=== PATIENT | male | born 1940 | race Caucasian/White ===

== ENCOUNTER 2018-09-24 12:21 | Outpatient (CLI) | payer MEDICARE ==
[2018-09-24 13:44] LABS: Hemoglobin 14.3 g/dL (14.0-18.0); Mean Corpuscular HGB CONC 33.8 g/dL (32.0-36.0); Mean Corpuscular Hemoglobin 30.8 pg (27.0-31.0); Mean Corpuscular Volume 91.2 fL (78.0-98.0); Mean Platelet Volume 8.6 fL (7.4-10.4); Platelet Count 210 thou/uL (130-400); RBC Distribution Width 12.8 % (11.5-14.5); Red Blood Cell (RBC) Count 4.63 mill/uL (4.70-6.10); White Blood Cell (WBC) Count 5.3 thou/uL (4.8-10.8)
[2018-09-24 13:56] LABS: Anion Gap 10 mmol/L (10-20); BUN (Urea Nitrogen) 18 mg/dL (8.4-25.7); Calc. Creatinine Clearance 0 mL/min (70-130); Calcium 8.7 mg/dL (7.8-10.44); Carbon Dioxide 25 mmol/L (23-31); Chloride 109 mmol/L (98-107); Estimated GFR-MDRD 71; Glucose 97 mg/dL (83-110); Potassium 4.1 mmol/L (3.5-5.1); Sodium 140 mmol/L (136-145)
--- NOTE | 2018-09-24 19:29 | EKG ---
Test Reason : Blood Pressure : / mmHG Vent. Rate : 055 BPM Atrial Rate : 055 BPM P-R Int : 194 ms QRS Dur : 118 ms QT Int : 432 ms P-R-T Axes : 054 014 019 degrees QTc Int : 413 ms Sinus bradycardia with sinus arrhythmia Incomplete right bundle branch block Borderline ECG No previous ECGs available Confirmed by BRIAN LAZO, DR. Thompson ([id number]) on 09/24/2018 7:29:44 PM Referred By: NEMESIO Confirmed By:DR. Donna TORRES MD
== END 2018-09-24 12:22 | disposition home or self-care (01) ==
LOC: LABBT 12:21
PROVIDERS: ATTEND Urology
DX: Z01.818 Encounter for other preprocedural examination (principal); N40.0 Benign prostatic hyperplasia without lower urinary tract symptoms; R33.9 Retention of urine, unspecified; R35.1 Nocturia; R39.14 Feeling of incomplete bladder emptying; R97.20 Elevated prostate specific antigen [PSA]; Q61.9 Cystic kidney disease, unspecified
CPT/HCPCS: 80048; 81001; 85027; 93005; 93010

== ENCOUNTER 2018-10-02 05:59 | Day surgery (SDC) | payer MEDICARE ==
[2018-09-24 12:29] VITALS: BMI 30.3
[2018-10-02] MEDS ORDERED: Levofloxacin 500 mg/D5W 100 ml Premix Bag ONE (06:30)
[2018-10-02] MEDS ORDERED: Fentanyl 100 MCG/2 ML VIAL ONE ×2 (07:02→11:03)
[2018-10-02] MEDS ORDERED: B & O ONE (07:25)
[2018-10-02] MEDS ORDERED: Furosemide 20 MG/2 ML VIAL ONE (07:25)
[2018-10-02] MEDS ORDERED: Ondansetron PF 4 MG/2 ML Vial ONE (16:24)
[2018-10-02] MEDS ORDERED: ePHEDrine/0.9% NaCl/PF SYRINGE 50 mg/10 ml ONE (16:24)
[2018-10-02] MEDS ORDERED: Lidocaine 1% PF 5 ML VIAL ONE (16:24)
[2018-10-02] MEDS ORDERED: Glycopyrrolate 0.2 MG/ML 5 ML SYRINGE ONE (16:24)
[2018-10-02] MEDS ORDERED: PROPOFOL 200 MG/20 ML VIAL ONE (16:24)
--- NOTE | 2018-10-05 04:53 | OP ---
DATE OF PROCEDURE: 10/02/2018 PREOPERATIVE DIAGNOSIS: Benign prostatic hyperplasia. POSTOPERATIVE DIAGNOSIS: Benign prostatic hyperplasia. PROCEDURE PERFORMED: GreenLight laser vaporization of the prostate with enucleation of the very large intravesical middle lobe using 452,331 joules. SPECIMENS: Prostate. COMPLICATIONS: None. DRAIN: Drain remaining, 20-Argentine shageluk. BLOOD LOSS: Minimal. ANESTHESIA: General with endotracheal tube. INDICATIONS FOR PROCEDURE: The patient is a 77-year-old male, whom I saw in the office with BPH, on maximum medicines and noted to have symptoms still, so was set up for definitive surgical intervention. DESCRIPTION OF PROCEDURE: The patient was brought into the room by Anesthesia, and kept in a supine position. After achieving general anesthetic, the legs were placed in lithotomy position and his perineum was prepped and draped in sterile fashion. Using a 22.5-Argentine cystoscope and a 30-degree lens, the urethra was traversed and the bladder was inspected. The ureteral orifices were identified, but it was very difficult to assess this based on its very large intravesical lobe. The left was definitely seen and the right was finally seen after significant time spent looking. Then, tedious resection of the intravesical lobe proceeded using a power level of 80, enucleating this in small enough pieces such that they could be easily irrigated out. This is about half of the case, and then once this was down, the lateral lobes were still obstructing as there was the long urethra. A power level of 80 was used. Once I was out of the actual intravesical component and when the scope was removed, good stream was noted. The scope was put back in and further resection of any obstructing component was taken out. A total of [id number] joules were used. A small amount of coag was used on the right side where there was a small venous bleed that was adequately controlled. There was no bleeding at the end of the case even with the relatively decompressed bladder. The bladder neck was undermined slightly in this area, so at this point, a wire was left in place, scope was removed and a 20-Argentine shageluk was placed over the wire and then the wire removed. Catheter balloon blown out with 30 mL of fluids and then secured to the patient's inner thigh. The patient was then awakened and transferred to the PACU in stable condition. Job ID: [id number] [facility]
== END 2018-10-02 12:45 | disposition home or self-care (01) ==
LOC: SDC 05:59
PROVIDERS: ATTEND Urology
PROC: 0V508ZZ Destruction of Prostate, Via Natural or Artificial Opening Endoscopic (ICD-10-PCS; principal; 2018-10-02)
DX: N40.1 Benign prostatic hyperplasia with lower urinary tract symptoms (principal); R33.8 Other retention of urine; R35.0 Frequency of micturition; R39.11 Hesitancy of micturition; R35.1 Nocturia; R39.12 Poor urinary stream; Q61.9 Cystic kidney disease, unspecified; I10 Essential (primary) hypertension; Z79.899 Other long term (current) drug therapy
CPT/HCPCS: 88305; 96374; J1940; J1956; J2001; J2405; J2704; J3010

== ENCOUNTER 2019-07-30 16:38 | Inpatient (IN) | payer MEDICARE ==
[2019-07-30] MEDS ORDERED: Nitroglycerin 2% Ointment 1 INCH/1 GM Packet ONE (17:02)
[2019-07-30 17:12] LABS: #Eosinphils 0.1 thou/uL (0.0-0.7); #Lymphocytes 1.1 thou/uL (1.20-3.40); #Monocytes 0.6 thou/uL (0.11-0.59); %Basophils 0.7 % (0.0-1.0); %Lymphocytes 18.7 % (21.0-51.0); %Monocytes 10.7 % (0.0-10.0); %Neutrophils 68.8 % (42.0-75.0); Hemoglobin 14.7 g/dL (14.0-18.0); Mean Corpuscular HGB CONC 33.6 g/dL (32.0-36.0); Mean Corpuscular Hemoglobin 30.9 pg (27.0-31.0); Mean Corpuscular Volume 91.9 fL (78.0-98.0); Mean Platelet Volume 8.4 fL (7.4-10.4); Platelet Count 194 thou/uL (130-400); RBC Distribution Width 12.5 % (11.5-14.5); Red Blood Cell (RBC) Count 4.77 mill/uL (4.70-6.10); White Blood Cell (WBC) Count 5.8 thou/uL (4.8-10.8)
--- NOTE | 2019-07-30 17:26 | RAD ---
RADIOGRAPH CHEST 1 VIEW: DATE: 07/30/2019 HISTORY: 78-year-old male with chest pain FINDINGS: The thoracic aorta is tortuous and ectatic. There is no evidence of airspace density, cardiomegaly, p ulmonary edema, or pneumothorax. The lateral costophrenic angles are not effaced. IMPRESSION: 1) No acute pulmonary findings. 2) ectasia of thoracic aorta.
[2019-07-30 17:33] LABS: ALT (SGPT) 12 U/L (8-55); AST (SGOT) 14 U/L (5-34); Albumin 4.1 g/dL (3.4-4.8); Alkaline Phosphatase 52 U/L (40-110); Anion Gap 10 mmol/L (10-20); BUN (Urea Nitrogen) 18 mg/dL (8.4-25.7); Bilirubin, Total 0.3 mg/dL (0.2-1.2); CK (CPK) 105 U/L (30-200); Calc. Creatinine Clearance 0 mL/min (70-130); Calcium 8.9 mg/dL (7.8-10.44); Carbon Dioxide 26 mmol/L (23-31); Chloride 107 mmol/L (98-107); Estimated GFR-MDRD 64; Globulin 2.4 g/dL (2.4-3.5); Glucose 109 mg/dL (83-110); Lipase 39 U/L (8-78); Potassium 3.8 mmol/L (3.5-5.1); Protein, Total 6.5 g/dL (5.8-8.1); Sodium 139 mmol/L (136-145)
[2019-07-30 17:52] LABS: CKMB 3.9 ng/mL (0-6.6)
[2019-07-30] MEDS ORDERED: Acetaminophen 325 MG TAB PO PRN (19:37)
[2019-07-30] MEDS ORDERED: Labetalol HCl 100 MG/20 ML VIAL SLOW IVP PRN (19:44)
[2019-07-30] MEDS ORDERED: Nitroglycerin 0.4 MG TAB (25 Tab Bottle) SL PRN (19:44)
[2019-07-30] MEDS ORDERED: Enoxaparin Sodium 80 MG/0.8 ML SYRINGE SC SCH (20:00)
[2019-07-30 20:49] LABS: Troponin I 1.958 ng/mL (< 0.028)
[2019-07-30 21:00] VITALS: BMI 26.9
[2019-07-30] MEDS ORDERED: Tamsulosin HCl 0.4 MG CAP PO SCH (21:00)
[2019-07-30] MEDS: Atorvastatin Calcium 40 MG TAB PO SCH (21:31)
[2019-07-30 23:49] LABS: Troponin I 3.665 ng/mL (< 0.028)
[2019-07-31] MEDS ORDERED: Sodium Chloride 0.9% 1,000 ML IV SCH
--- NOTE | 2019-07-31 01:43 | HP ---
CHIEF COMPLAINT: Chest pain. HISTORY OF PRESENT ILLNESS: The patient is a very pleasant 78-year-old male with a history of hypertension, who presents to the hospital with complaints of chest pain x1 day. The patient states that he was walking around in his yard when he started having some chest pain, chest tightness and radiated up to his left jaw line. At this time, the patient went back into his house, rested, his pain got a little better. However, when his pain did not improve, he asked his to call 911 and was brought into the hospital. The patient stated that about 2 weeks ago, he had a similar episode while he was in the yard. He had some chest pain. However, he thought that was most likely an indigestion and however the pain improved without any intervention. The patient denies any episodes in between the 2 weeks, any other additional episodes. The patient stated that he was given nitroglycerin in the ER. He was also given some fentanyl and full baby aspirins. PAST MEDICAL HISTORY: The patient does have a history of hypertension and hyperlipidemia. He also has a history of BPH and diverticulitis. PAST SURGICAL HISTORY: He has had appendectomy, tonsillectomy, colonoscopy in 2018. FAMILY HISTORY: Father at 84, emphysema, stomach cancer. Mother diseased at 93. SOCIAL HISTORY: He denies any smoking, drug abuse, or alcohol. He drinks one beer a month. He is , lives with his , and he is a full code. ALLERGIES: HE HAS NO KNOWN DRUG ALLERGIES. MEDICATIONS: 1. Benazepril 10 mg daily. 2. Finasteride 5 mg daily. 3. Tamsulosin 0.4 daily. REVIEW OF SYSTEMS: All negative except for the ones mentioned above in the HPI. PHYSICAL EXAMINATION: VITAL SIGNS: As of the following; temperature of 98.8, heart rate of 80, blood pressure of 150/60, 98% on room air. GENERAL: He is awake, alert, and oriented x3. Does not appear in any distress. HEENT: Normocephalic, atraumatic. No lymphadenopathy noted. Pupils are equal and reactive to light. CV: S1 and S2 present. No murmurs, rubs, or gallops. LUNGS: Clear to auscultation. No rhonchi or wheezes noted. ABDOMEN: Soft and nontender. Bowel sounds are present x2. EXTREMITIES: No edema. Pedal pulses are present x2. NEUROVASCULAR: No focal deficits noted. SKIN: No cuts, lesions or bruises noted. LABORATORY RESULTS: His WBCs of 5.8, hemoglobin of 14.7, hematocrit of 43.8, his platelets of 194. Chemistry; sodium of 139, potassium 3.8, BUN of 18, creatinine 1.12. His troponin initially was 0.082. LFTs were normal. He did have a chest x-ray, which did not indicate any acute abnormalities. He did have an EKG that indicated some ST depressions in his lateral leads. I am getting a previous EKG from August to , however, currently I do not have it available. ASSESSMENT AND PLAN: The patient is a very pleasant 78-year-old male, who presents to the hospital with complaints of chest pain. 1. Non ST-elevation myocardial infarction. Given his elevated troponins and his chest pain, history of hypertension male and his age, I will go ahead and get a cardiology consult, put him on Lovenox 1 mg/kg b.i.d. He has already received aspirin. I will start him on a statin. We will check a lipid level in the morning. If patient gets chest pain overnight, I have ordered some nitroglycerin for pain relief. I have advised the patient to call if he does have chest pain. I will keep him n.p.o. after midnight. I will start him on some normal saline after midnight for possibly anticipated cardiac procedures. 2. Hypertension. We will continue his home medications. 3. Deep venous thrombosis prophylaxis. The patient is already on Lovenox and continue to monitor. Job ID: [id number]
[2019-07-31 07:08] LABS: #Eosinphils 0.1 thou/uL (0.0-0.7); #Lymphocytes 1.2 thou/uL (1.20-3.40); #Monocytes 0.7 thou/uL (0.11-0.59); %Basophils 0.5 % (0.0-1.0); %Lymphocytes 17.6 % (21.0-51.0); %Monocytes 9.5 % (0.0-10.0); %Neutrophils 71.4 % (42.0-75.0); Hemoglobin 13.7 g/dL (14.0-18.0); Mean Corpuscular HGB CONC 34.1 g/dL (32.0-36.0); Mean Corpuscular Hemoglobin 31.2 pg (27.0-31.0); Mean Corpuscular Volume 91.5 fL (78.0-98.0); Platelet Count 166 thou/uL (130-400); RBC Distribution Width 12.6 % (11.5-14.5); Red Blood Cell (RBC) Count 4.39 mill/uL (4.70-6.10)
[2019-07-31 07:23] LABS: Anion Gap 10 mmol/L (10-20); BUN (Urea Nitrogen) 17 mg/dL (8.4-25.7); Calc. Creatinine Clearance 61 mL/min (70-130); Calcium 8.7 mg/dL (7.8-10.44); Carbon Dioxide 27 mmol/L (23-31); Cardiac Risk 4.9 (Less than 4.5); Chloride 109 mmol/L (98-107); Cholesterol 170 mg/dl (< 200 Desired); Estimated GFR-MDRD 65; Glucose 104 mg/dL (83-110); HDL Cholesterol 35 mg/dL (>60 Neg Risk); LDL Cholesterol, Calculated 113 mg/dL; Potassium 4.3 mmol/L (3.5-5.1); Sodium 142 mmol/L (136-145); Triglycerides 112 mg/dL (Less than 150)
[2019-07-31 07:30] LABS: Troponin I 3.379 ng/mL (< 0.028)
[2019-07-31] MEDS ORDERED: Aspirin 325 mg Enteric Coated Tablet PO SCH (09:00)
[2019-07-31] MEDS ORDERED: Enoxaparin Sodium 80 MG/0.8 ML SYRINGE SC SCH (09:00)
[2019-07-31] MEDS: Finasteride 5 MG TAB PO SCH (09:01)
[2019-07-31] MEDS: Lisinopril 20 MG TAB PO SCH (09:01)
[2019-07-31] MEDS ORDERED: Nitroglycerin 2% Ointment 1 INCH/1 GM Packet TOP SCH (09:30)
[2019-07-31] MEDS ORDERED: Midazolam HCl 2 mg/2 ml Vial ONE (12:09)
[2019-07-31] MEDS ORDERED: Lidocaine 1% (PF) 30 ML VIAL ONE (12:09)
[2019-07-31] MEDS ORDERED: Fentanyl 100 MCG/2 ML VIAL ONE (12:10)
[2019-07-31] MEDS ORDERED: Heparin 10,000 UNITS/1 ML VIAL ONE (12:54)
[2019-07-31] MEDS ORDERED: Morphine 2 MG/ML SYRINGE SLOW IVP PRN (13:24)
[2019-07-31] MEDS ORDERED: Sodium Chloride 0.9% 500 ML IV SCH (13:30)
[2019-07-31] MEDS ORDERED: TICAGRELOR 90 MG TABLET ONE (13:31)
--- NOTE | 2019-07-31 16:31 | PDOC.HOSPP ---
- Subjective Encounter Date: 07/31/19 Encounter Time: 09:00 Subjective: pt up in bed no has mild chest pain - Objective Vital Signs & Weight: Vital Signs (12 hours) Temp Pulse Resp BP Pulse Ox 07/31/19 13:45 97.9 F 46 L 16 142/78 H 99 07/31/19 12:00 98.1 F 50 L 16 132/68 94 L 07/31/19 08:00 98.6 F 52 L 16 138/66 97 Weight Weight 167 lb 3.2 oz I&O: 07/30/19 07/31/19 08/01/19 06:59 06:59 06:59 Intake Total 754 Output Total 0 225 Balance 754 -225 Result Diagrams: 07/31/19 06:22 07/31/19 06:22 Hospitalist ROS - Review of Systems Cardiovascular: denies: chest pain, palpitations, orthopnea, paroxysmal noc. dyspnea, edema, light headedness, other Gastrointestinal: denies: nausea, vomiting, abdominal pain, diarrhea, constipation, melena, hematochezia, other Genitourinary: denies: dysuria, frequency, incontinence, hematuria, retention, other - Medication Medications: Active Medications Generic Name Dose Route Start Last Admin Trade Name Freq PRN Reason Stop Dose Admin Atorvastatin Calcium 80 mg 07/30/19 21:00 07/30/19 21:31 Lipitor PO 80 mg HS SUJEY Administration Finasteride 5 mg 07/31/19 09:00 07/31/19 09:01 Proscar PO 5 mg DAILY SUJEY Administration Sodium Chloride 500 mls @ 100 mls/hr 07/31/19 13:30 07/31/19 15:50 Normal Saline 0.9% IV 07/31/19 18:29 Not Given .Q5H SUJEY Lisinopril 20 mg 07/31/19 09:00 07/31/19 09:01 Zestril PO 20 mg DAILY SUJEY Administration - Exam Heart: negative: RRR, no murmur, no gallops, no rubs, normal peripheral pulses, irregular, diminshed peripheral pulses, murmur present, II/IV, III/IV Respiratory: negative: CTAB, no wheezes, no rales, no ronchi, normal chest expansion, no tachypnea, normal percussion, rales, rhonchi, tachypneic, wheezes Gastrointestinal: negative: soft, non-tender, non-distended, normal bowel sounds , no palpable masses, no hepatomegaly, no splenomegaly, no bruit, no guarding, no rigidity, tender to palpation, distended, diminished bowl sounds, voluntary guarding Hosp A/P (1) NSTEMI (non-ST elevated myocardial infarction) Code(s): I21.4 - NON-ST ELEVATION (NSTEMI) MYOCARDIAL INFARCTION Status: Acute (2) HTN (hypertension) Code(s): I10 - ESSENTIAL (PRIMARY) HYPERTENSION Status: Acute - Plan pt npo, on asa/statin and lovonox. cardiology consulted.
--- NOTE | 2019-07-31 19:49 | CON ---
DATE OF CONSULTATION: REASON FOR CONSULTATION: Non-STEMI. PRIMARY ELECTROTYPER: Tristen Ely MD HISTORY OF PRESENT ILLNESS: Mr. Arellano is a very pleasant 78-year-old white gentleman who comes to the hospital for chest pain. He was admitted and diagnosed with a non-ST elevation CA with positive troponins. Cardiology is being consulted for this. On my evaluation, he is pain free. He had a normal stress and an unremarkable echo just about 6 or 8 months ago. PAST MEDICAL HISTORY: 1. Hypertension. 2. Hyperlipidemia. 3. BPH. 4. Diverticulitis. PAST SURGICAL HISTORY: 1. Appendectomy. 2. Tonsillectomy. 3. Colonoscopy. FAMILY HISTORY: Father with emphysema and GI cancer. Mother at 93 from old age. SOCIAL HISTORY: No alcohol, tobacco, or drugs. He drinks one beer socially, probably once a month. OUTPATIENT MEDICATIONS: 1. Benazepril 10 mg a day. 2. Finasteride 5 mg a day. 3. Tamsulosin 0.4 a day. ALLERGIES: NO KNOWN DRUG ALLERGIES. REVIEW OF SYSTEMS: A 12-point review of systems was done and was all negative unless stated in the history of present illness. PHYSICAL EXAMINATION: VITAL SIGNS: Temperature 97.9, pulse 46, respiratory rate 16, saturating 99% on room air, and blood pressure 142/78. GENERAL: Awake, alert, oriented x3, and in no distress. HEENT: Normocephalic and atraumatic. NECK: Supple. LUNGS: Clear. CARDIOVASCULAR: S1 and S2. No S3 or S4. No murmurs. ABDOMEN: Soft. Positive bowel sounds. EXTREMITIES: No edema. SKIN: Warm and dry. LABORATORY DATA: Laboratory work was reviewed. CBC, CMP, and chemistries were all reviewed. Troponin was up to 3.6, already down trended to 3.3. GFR of 65. Cholesterol total of 170, LDL of 113, HDL of 35. EKG was reviewed. Chest x-ray was reviewed. ASSESSMENT AND PLAN: 1. Non-ST elevation myocardial infarction. 2. We will plan on taking him to the catheterization lab for further evaluation. Risks and benefits of the procedure were discussed. Risks included, but not limited to stroke, CA, , bleeding, need for blood transfusion, limb loss, organ loss, renal dysfunction. The patient understands and verbalized understanding of this and agrees to proceed. 3. Further recommendations per results of coronary angiogram. Job ID: [id number]
--- NOTE | 2019-07-31 20:03 | EKG ---
Test Reason : Blood Pressure : / mmHG Vent. Rate : 046 BPM Atrial Rate : 046 BPM P-R Int : 188 ms QRS Dur : 138 ms QT Int : 458 ms P-R-T Axes : 043 007 -18 degrees QTc Int : 400 ms Marked sinus bradycardia with Premature atrial complexes Right bundle branch block Left ventricular hypertrophy with QRS widening Abnormal ECG When compared with ECG of 30-JUL-2019 16:47, (Unconfirmed) Premature atrial complexes are now Present QT has shortened Confirmed by BRIAN LAZO, DR. Thompson ([id number]) on 07/31/2019 8:02:37 PM Referred By: DR. AMIN Confirmed By:DR. Donna TORRES MD
--- NOTE | 2019-07-31 20:07 | EKG ---
Test Reason : POST STENT Blood Pressure : / mmHG Vent. Rate : 045 BPM Atrial Rate : 045 BPM P-R Int : 184 ms QRS Dur : 148 ms QT Int : 480 ms P-R-T Axes : 054 006 -23 degrees QTc Int : 415 ms Marked sinus bradycardia Right bundle branch block Abnormal ECG When compared with ECG of 30-JUL-2019 21:31, (Unconfirmed) Premature atrial complexes are no longer Present Confirmed by BRIAN LAZO, SKayy ([id number]) on 07/31/2019 8:07:29 PM Referred By: YUSRA Confirmed By:DR. Donna TORRES MD
[2019-07-31] MEDS ORDERED: Iopamidol 370 76% 100 ML VIAL ONE (20:22)
[2019-07-31] MEDS ORDERED: Iopamidol 370 76% 50 ML VIAL FS ONE (20:22)
[2019-07-31] MEDS ORDERED: Lisinopril 10 MG TAB PO SCH (21:00)
[2019-07-31] MEDS: TICAGRELOR 90 MG TABLET PO SCH (21:24)
[2019-07-31] MEDS: Atorvastatin Calcium 40 MG TAB PO SCH (21:26)
[2019-08-01 06:51] LABS: #Eosinphils 0.1 thou/uL (0.0-0.7); #Lymphocytes 0.9 thou/uL (1.20-3.40); #Monocytes 0.9 thou/uL (0.11-0.59); %Basophils 0.2 % (0.0-1.0); %Eosinophils 0.7 % (0.0-10.0); %Lymphocytes 11.7 % (21.0-51.0); %Monocytes 11.6 % (0.0-10.0); %Neutrophils 75.8 % (42.0-75.0); Hemoglobin 13.6 g/dL (14.0-18.0); Mean Corpuscular HGB CONC 34.3 g/dL (32.0-36.0); Mean Corpuscular Hemoglobin 31.6 pg (27.0-31.0); Mean Corpuscular Volume 92.2 fL (78.0-98.0); Mean Platelet Volume 8.4 fL (7.4-10.4); Platelet Count 164 thou/uL (130-400); RBC Distribution Width 12.5 % (11.5-14.5); Red Blood Cell (RBC) Count 4.29 mill/uL (4.70-6.10)
[2019-08-01 07:24] LABS: ALT (SGPT) 13 U/L (8-55); AST (SGOT) 45 U/L (5-34); Albumin 3.5 g/dL (3.4-4.8); Alkaline Phosphatase 50 U/L (40-110); Anion Gap 9 mmol/L (10-20); BUN (Urea Nitrogen) 14 mg/dL (8.4-25.7); Bilirubin, Total 0.9 mg/dL (0.2-1.2); Calc. Creatinine Clearance 67 mL/min (70-130); Calcium 8.5 mg/dL (7.8-10.44); Carbon Dioxide 25 mmol/L (23-31); Chloride 109 mmol/L (98-107); Estimated GFR-MDRD 72; Globulin 2.8 g/dL (2.4-3.5); Glucose 92 mg/dL (83-110); Potassium 4.2 mmol/L (3.5-5.1); Protein, Total 6.3 g/dL (5.8-8.1); Sodium 139 mmol/L (136-145)
[2019-08-01 07:54] VITALS: TEMP 98.9
[2019-08-01] MEDS: Finasteride 5 MG TAB PO SCH (08:33)
[2019-08-01] MEDS: Lisinopril 20 MG TAB PO SCH (08:33)
[2019-08-01 08:34] VITALS: BP 144/64
[2019-08-01] MEDS: TICAGRELOR 90 MG TABLET PO SCH (08:34)
[2019-08-01] MEDS ORDERED: Lisinopril 20 MG TAB PO SCH ×2 (09:00→10:15)
[2019-08-01] MEDS ORDERED: Aspirin Chewable 81 MG TAB PO SCH (09:00)
--- NOTE | 2019-08-01 20:37 | EKG ---
Test Reason : Blood Pressure : / mmHG Vent. Rate : 060 BPM Atrial Rate : 060 BPM P-R Int : 176 ms QRS Dur : 148 ms QT Int : 460 ms P-R-T Axes : 071 007 -16 degrees QTc Int : 460 ms Sinus rhythm with marked sinus arrhythmia Right bundle branch block Abnormal ECG When compared with ECG of 31-JUL-2019 14:12, QT has lengthened Confirmed by BRIAN LAZO, SKayy ([id number]) on 08/01/2019 8:37:04 PM Referred By: YUSRA Confirmed By:DR. Donna TORRES MD
--- NOTE | 2019-08-02 01:05 | DIS ---
DATE OF ADMISSION: 07/31/2019 DATE OF DISCHARGE: 08/01/2019 DISCHARGE DIAGNOSES: 1. Ihz-BR-xhlngbvau myocardial infarction. 2. Coronary artery disease. 3. Hypertension. HOSPITAL COURSE: The patient is a 78-year-old male who initially presented to the hospital with chest pain. He had positive troponins and some ST depression in his lateral leads. He underwent a cardiac catheterization indicated severe OM2 bottom branch and had a drug-eluting stent to his OM2. The patient was started on Brilinta and aspirin and he will be discharged home. I have asked him to follow up with Cardiology. HOME MEDICATIONS: 1. Aspirin 81 mg daily. 2. Brilinta 90 mg b.i.d. 3. Atorvastatin 40 mg daily. 4. Benazepril 20 mg b.i.d. I have changed this from 20 mg in the day and 10 mg at night. 5. Finasteride 5 mg daily. PHYSICAL EXAMINATION: VITAL SIGNS: Temperature of 98.9, pulse 97% on room air, blood pressure 167/84. GENERAL: He is awake, alert, and oriented x3. Does not appear in distress. CV: S1 and S2 present. No murmurs, rubs, gallops. ABDOMEN: Soft and nontender. Bowel sounds are present x2. Job ID: [id number]
--- NOTE | 2019-08-03 14:29 | EKG ---
Test Reason : Blood Pressure : / mmHG Vent. Rate : 060 BPM Atrial Rate : 060 BPM P-R Int : 166 ms QRS Dur : 140 ms QT Int : 448 ms P-R-T Axes : 044 -07 -23 degrees QTc Int : 448 ms Sinus rhythm with marked sinus arrhythmia Right bundle branch block Abnormal ECG Confirmed by SHANTA HALL ([id number]), photographic editor TRAVIS RODRIGUEZ ([id number]) on 08/03/2019 2:28:52 PM Referred By: Confirmed By:SHANTA HALL
[2019-08-06] MEDS ORDERED: Ergocalciferol 1.25 MG(50,000 UNITS) CAP PO SCH (09:00)
== END 2019-08-01 11:08 | disposition home or self-care (01) | DRG 247 ==
LOC: ERS 16:38 → 2SW 18:13 → OBSVTOIN 07-31 15:22
PROVIDERS: ADMIT Internal Medicine; ATTEND Internal Medicine
PROC: 027034Z Dilation of Coronary Artery, One Artery with Drug-eluting Intraluminal Device, Percutaneous Approach (ICD-10-PCS; principal; 2019-07-31)
PROC: 4A023N7 Measurement of Cardiac Sampling and Pressure, Left Heart, Percutaneous Approach (ICD-10-PCS; 2019-07-31)
PROC: B2151ZZ Fluoroscopy of Left Heart using Low Osmolar Contrast (ICD-10-PCS; 2019-07-31)
PROC: B2111ZZ Fluoroscopy of Multiple Coronary Arteries using Low Osmolar Contrast (ICD-10-PCS; 2019-07-31)
DX: I21.4 Non-ST elevation (NSTEMI) myocardial infarction (principal); I10 Essential (primary) hypertension; E78.5 Hyperlipidemia, unspecified; N40.0 Benign prostatic hyperplasia without lower urinary tract symptoms; I25.10 Atherosclerotic heart disease of native coronary artery without angina pectoris; E78.00 Pure hypercholesterolemia, unspecified; Z79.899 Other long term (current) drug therapy; Z90.49 Acquired absence of other specified parts of digestive tract
CPT/HCPCS: 36415; 71045; 80048; 80053; 80061; 82550; 82553; 83690; 84484; 85025; 85347; 92928; 93005; 93010; 93458; 93798; 94760; 99152; 99153; C1760; C1769; C1874; C9600; J1644; J1650; J2001; J2250; J2270; J3010; Q9967